=== PATIENT | male | born 1935 | race African-American/Black ===

== ENCOUNTER 2024-04-27 08:13 | Outpatient (RCR) | payer MEDICARE, SELFPAY ==
[2024-04-27 12:00] VITALS: BP 178/82; PULSE 51; TEMP 36.6; O2SAT 93
[2024-04-27] MEDS: LIDOCAINE 2% JELLY 10 ML UR (12:45)
[2024-04-27] MEDS: SOLIFENACIN SUCCINATE 10 MG TABLET PO (13:40)
[2024-04-27] MEDS: MITOMYCIN 40 MG in WATER FOR INJECTION,STERILE 20 ML 20 MG INTRAVESIC (13:50)
[2024-04-27 14:20] VITALS: BP 148/75; PULSE 58; TEMP 36.4; O2SAT 98
--- NOTE | 2024-04-27 14:24 | PC.NURSE ---
1200: Pt. to [facility] amb. for intravesicular Mitomycin treatment. Consent forms reviewed and signed. Questions addressed. Pt. to bed, changes into gown and to supine position. VSS. 1245: Lidocaine Urojet instiled into meatus of penis. Tolerated without c/o. 1250: Using sterile technique, #16 Fr. randhawa cath inserted into bladder without difficulty. Immediate return of 200cc clear, yellow urine. Randhawa bag removed. Mitomycin 40mg instilled into bladder, randhawa clamped. Pt. tolerated without c/o. Instructed pt. to turn side to side and front to back every 15min. x's 1hour. Pt. relays understanding. Warm blankets provided. 1315: Tolerating treatment without c/o. Denies need. 1340: Pt. medicated with vesicare 10mg po per Dr. Parker order for bladder spasm prevention. 1355: Treatment completed at this time. Pt. tolerated without c/o burning or pain. Relays having a bladder spasm towards end of treatment. Front of gown noted to be wet as well as underpad. Randhawa bag re-attached and emptied for 200cc pale purple, yellow urine observed. Randhawa cath removed at this time. Pt. given wash rag and towel for betsy care. Pt. denies assistance. 1420: Pt. without c/o. VSS. D/c'd amb. to home.
== END 2024-05-08 23:59 | disposition home or self-care (01) ==
LOC: INF 08:13
PROVIDERS: PCP Internal Medicine; Visit Provider Urology
DX: Z85.51 Personal history of malignant neoplasm of bladder (principal)
CPT/HCPCS: 51700; J9280

== ENCOUNTER 2024-05-25 07:37 | Outpatient (RCR) | payer MEDICARE, SELFPAY ==
[2024-05-25 12:22] VITALS: BP 172/83; PULSE 58; TEMP 36.7; O2SAT 95
[2024-05-25] MEDS: LIDOCAINE 2% JELLY 10 ML UR (12:40)
[2024-05-25] MEDS: MITOMYCIN 40 MG in WATER FOR INJECTION,STERILE 20 ML 20 MG INTRAVESIC (12:44)
--- NOTE | 2024-05-25 13:01 | PC.NURSE ---
1222: Pt. to [facility] amb. for Mitomycin infusion. VSS. Relays feeling really tired after last treatment. No other adverse effects voiced. Pt. changed into gown and to supine position on bed. 1240: Urojet lidocaine jelly injected into penis. Using sterile technique, #16 FR. randhawa cath inserted into penis easily with immediate return of 75ML clear yellow urine. Pt. tolerated without c/o discomfort. 1244: Mitomycin instilled into bladder via randhawa catheter. Randhawa clamped. Instructed pt to turn side to side and front to back every 15min x's 1 hour. Pt. relays understanding. 1305:Pt. tolerating infusion without c/o.
[2024-05-25 14:05] VITALS: BP 166/78; PULSE 60; TEMP 36.4; O2SAT 96
--- NOTE | 2024-05-25 14:20 | PC.NURSE ---
1325: Pt. continues to turn as directed. Denies c/o. 1350: Bladder infusion complete at this time. Drainage bag re-connected to Garcia. Bladder drained for 200 ML pale purple colored urine. Catheter d/c'd, pt. tolerated without c/o. No irritation in betsy area. Pt. denies pain or burning. Given wash cloth and towel for betsy care. 1405: Pt without c/o. VSS. D/c'd amb. to home.
== END 2024-06-08 23:59 | disposition home or self-care (01) ==
LOC: INF 07:37
PROVIDERS: PCP Internal Medicine; Visit Provider Urology
DX: Z85.51 Personal history of malignant neoplasm of bladder (principal)
CPT/HCPCS: 51700; J9281

== ENCOUNTER 2024-06-22 08:23 | Outpatient (RCR) | payer MEDICARE, SELFPAY ==
[2024-06-22 12:33] VITALS: BP 169/71; PULSE 57; TEMP 36.6; O2SAT 95
--- NOTE | 2024-06-22 12:51 | PC.NURSE ---
1233:Pt. to [facility] amb. for Mitomycin treatment. VSS. Denies c/o other than arthritis pain . Given privacy to change into gown.
[2024-06-22] MEDS: LIDOCAINE 2% JELLY 10 ML UR (13:00)
[2024-06-22] MEDS: MITOMYCIN 40 MG in WATER FOR INJECTION,STERILE 20 ML 20 MG INTRAVESIC (13:15)
--- NOTE | 2024-06-22 13:23 | PC.NURSE ---
1300: Urojet instilled at this time. Given time to dwell. 1315:Using sterile technique, 16Fr.randhawa cath inserted into bladder easily with immediate return of 100cc clear yellow urine. Pt. tolerated without c/o. Mitomycin, 40mg instilled into bladder at this time. Randhawa cath. plugged. Instructed pt. to turn side to side and front to back every 15min x's 1 hour. Pt. relays understanding. Warm blanket provided. Denies needs.
--- NOTE | 2024-06-22 15:39 | PC.NURSE ---
Pt completed 1 hr dwell time of intravesicular mitomycin. Pt had bladder spasm prior to removal of randhawa. Skin was cleansed with soap and water. Bladder was drained into randhawa bag, approx 400ml urine output. Balloon deflated and cath removed without incident. Pt d/c'd in stable condition.
== END 2024-07-08 23:59 | disposition home or self-care (01) ==
LOC: INF 08:23
PROVIDERS: PCP Internal Medicine; Visit Provider Urology
DX: Z85.51 Personal history of malignant neoplasm of bladder (principal)
CPT/HCPCS: 51700; J9281